=== PATIENT | female | born 1970 | race Caucasian/White ===

== ENCOUNTER → 2017-03-02 | Outpatient (REF) | payer BC, OTHER ==
[~2017-03-02] MED LIST: IBUP600T OR; MIRALEX PO; VICO5TAB OR; advil PO
[2017-03-02 13:04] LABS: FREE T4 1.09 NG/DL (0.76-1.46)
[2017-03-02 13:13] LABS: THYROID PEROXIDASE ANTIBODY 34.4 U/ML (<60.0)
[2017-03-09 00:06] LABS: T3 RESIN UPTAKE 30 % (24-39)
== END ==
LOC: M LABDRAW1 11:25
PROVIDERS: ATTEND Physician Assistant
DX: E04.1 Nontoxic single thyroid nodule (principal)